=== PATIENT | female | born 1980 | race Caucasian/White ===

== ENCOUNTER 2016-12-25 14:35 | Emergency (ER) | payer OTHER ==
[2016-12-25 16:14] LABS: HEMOGLOBIN 9.9 gm/dl (12.3-15.3); RED BLOOD COUNT 3.99 M/UL (4.00-5.10); WHITE BLOOD COUNT 9.4 K/UL (4.5-11.0)
[2016-12-25 16:25] LABS: BUN/CREATININE RATIO 9 (0-10)
== END 2016-12-25 21:00 | disposition home or self-care (01) ==
LOC: ER1 14:35
PROVIDERS: Student in an Organized Health Care Education/Training Program
DX: K59.00 Constipation, unspecified (principal); D64.9 Anemia, unspecified; K64.4 Residual hemorrhoidal skin tags; F17.210 Nicotine dependence, cigarettes, uncomplicated; Z88.2 Allergy status to sulfonamides; Z88.8 Allergy status to other drugs, medicaments and biological substances
CPT/HCPCS: 36415; 71020; 80053; 81001; 82272; 83605; 83690; 84703; 85025; 87040; 87086; 96361; 96374; 96375; 99284; J2270; J2405; J7050; Q9962

== ENCOUNTER → 2016-12-28 | Outpatient (CLI) | payer OTHER | LOC: LAB 12:34 | DX: J45.909 Unspecified asthma, uncomplicated (principal) | CPT/HCPCS: 36415; 82785 ==

== ENCOUNTER → 2016-12-28 | Outpatient (CLI) | payer OTHER | LOC: HEART 5 11:48 | DX: J41.0 Simple chronic bronchitis (principal) | CPT/HCPCS: 94010 ==

== ENCOUNTER → 2020-09-02 | Outpatient (CLI) | payer OTHER ==
[~2020-09-02] MED LIST: ACIDOPHILUS LACT1 GM PO; ADVAIR 250-501 EACH INH; ADVAIR HFA 115-28 GM INH; ALBUTEROL1.25 MG/3 INH; AMITRIPTYLINE100 MG PO; CEFUROXIME500 MG PO; CLARITIN10 MG PO; COLCHICINE0.6 MG PO; CYCLOBENZAPRINE10 MG PO; DEPO-PROVE150 MG/11 IM; FLEXERIL 10 MG10 MG PO; FLOMAX 0.4 MG0.4 MG PO; IBU600 MG PO; IBUPROFEN800 MG PO; IMITREX TAB 2525 MG PO; LEVAQUIN750 MG PO; LODINE CAP 300300 MG PO; LOPRESSOR 25 MG25 MG PO; LOPRESSOR50 MG PO; MOBIC15 MG PO; NEURONTIN 100100 MG PO; NEURONTIN 300300 MG PO; NEURONTIN400 MG PO; NORCO 7.5-3251 EACH PO; NORFLEX 100 MG100 MG PO; OXYCONTIN10 MG PO; PERCOCET 5-3251 EACH PO; PHENERGAN 25 MG25 M1 PO; PREDNISONE10 MG PO; PRILOSEC OTC20 MG PO; PROAIR HFA8.5 GM INH; PROTONIX 20 MG20 MG PO; PROTONIX40 MG PO; PROZAC40 MG PO; PYRIDIUM200 MG PO; ROXICODONE5 MG PO; SINGULAIR10 MG PO; TOPAMAX50 MG PO; ULTRAM50 MG PO; VALIUM 5 MG TAB5 MG PO; VANCOMYCIN PO; VENTOLIN HFA 66.7 GM INH; VITAMIN D31250 MCG PO; VRAYLAR3 MG PO; ZANAFLEX 4 MG TA4 MG PO; ZANAFLEX4 MG PO; ZESTORETIC 20-1 EAC1 PO; ZOFRAN 4 MG TAB4 MG PO; ZOFRAN4 MG PO; ZYLOPRIM300 MG PO; ZYRTEC10 MG PO
[2020-09-02 17:09] LABS: BUN/CREATININE RATIO 15 (0-10)
[2020-09-04 10:13] LABS: CREATININE, URINE 108.6 mg/dL (Not Estab.)
== END ==
LOC: LAB 15:53
PROVIDERS: Internal Medicine Nephrology
DX: I10 Essential (primary) hypertension (principal); N17.9 Acute kidney failure, unspecified; J44.9 Chronic obstructive pulmonary disease, unspecified
CPT/HCPCS: 36415; 80053; 81001; 82043; 82570; 84156

== ENCOUNTER → 2021-11-29 | Outpatient (CLI) | payer OTHER | LOC: KOH-I 16:27 | DX: M25.572 Pain in left ankle and joints of left foot (principal) | CPT/HCPCS: 73610; 73630 ==